=== PATIENT | female | born 1995 | race Caucasian/White ===

== ENCOUNTER 2022-02-27 09:12 | Outpatient (REF) | payer MEDICAID, SELFPAY | END 2022-02-27 09:13 | disposition home or self-care (01) | LOC: HO.HOSX 09:12 | PROVIDERS: Visit Provider Orthopaedic Surgery | DX: Z13.89 Encounter for screening for other disorder (principal) ==

== ENCOUNTER 2023-01-29 15:07 | Outpatient (REF) | payer MEDICAID, SELFPAY ==
--- NOTE | ~2023-01-29 | CT_ITS ---
EXAMINATION: CT ABDOMEN AND PELVIS WITHOUT CONTRAST CLINICAL INFORMATION: Unspecified abdominal pain. COMPARISON: None available. TECHNIQUE: Multidetector volumetric imaging was performed from the superior aspect of the liver through the pubic symphysis. Sagittal and coronal reformatted images were obtained on the technologist's workstation. Lack of intravenous and oral contrast limits visceral evaluation. This CT examination was performed using dose optimization techniques as appropriate, variously including the following: *Automated exposure control *Adjustment of mA and/or kV according to patient size (this includes techniques or standardized protocols for targeted exams where dose is matched to indication/reason for exam; i.e. extremities or head) *Use of iterative reconstruction technique DLP: 749 mGy-cm FINDINGS: LUNG BASES: Mild thin-walled cysts are seen at the lung bases, most pronounced in the left lower lobe without pleural effusions. No pericardial effusion. LIVER, GALLBLADDER, AND BILIARY TREE: Mild diffuse decreased hepatic attenuation without focal abnormality. No biliary abnormality. PANCREAS: Unremarkable. SPLEEN: 12.6 cm without focal abnormality. Small splenule. ADRENAL GLANDS: Unremarkable. KIDNEYS AND URETERS: The kidneys are normal in size, shape, and attenuation. No hydronephrosis, hydroureter, or calculi seen. No perinephric stranding. BLADDER: Unremarkable. GASTROINTESTINAL TRACT: The stomach, small bowel and appendix are unremarkable. The colon is unremarkable. ABDOMINAL WALL: No significant hernia is appreciated. LYMPH NODES: No lymphadenopathy. VASCULAR: Unremarkable. PELVIC VISCERA: Unremarkable. Trace free fluid in the cul-de-sac. OSSEOUS STRUCTURES: Mild degenerative disc disease in the visualized thoracic spine mild with increased kyphosis. CT/CT abdomen pelvis wo IV con IMPRESSION: 1. No acute intra-abdominal/pelvic abnormality to explain the patient's pain. 2. Mild hepatic steatosis without focal abnormality. 3. Trace free fluid in the cul-de-sac is likely physiologic. 4. Small thin-walled cysts in the lower lung lopez bilaterally are nonspecific in a patient of this age, but demonstrate benign features. Short-term radiographic follow-up as clinically indicated.
== END 2023-01-29 15:08 | disposition home or self-care (01) ==
LOC: HO.CT 15:07
PROVIDERS: Visit Provider Nurse Practitioner Family
DX: R10.9 Unspecified abdominal pain (principal)
CPT/HCPCS: 74176

== ENCOUNTER 2024-07-09 11:13 | Outpatient (REF) | payer MEDICAID, SELFPAY ==
[2024-07-09 13:08] LABS: MANUAL DIFF FLAG NO
[2024-07-09 13:18] LABS: Basophils Percent Auto 0.6 % (0-2); Eosinophils Absolute Auto 0.2 X10*3/uL (0.0-0.4); Hematocrit 37.6 % (37.0-47.0); Hemoglobin 11.6 g/dl (12.0-16.0); Imm Gran Abs Auto 0.03 X10*3/uL (0.00-0.03); Imm Gran Pct Auto 0.4 % (0.0-0.4); Lymphocytes Absolute Auto 2.1 X10*3/uL (1.2-4.9); Lymphocytes Percent Auto 29.8 % (20-40); Mean Corpuscular HGB Conc 30.9 g/dl (31.0-35.0); Mean Corpuscular Hemoglobin 25.7 pg (27.0-33.0); Mean Corpuscular Volume 83.2 fL (80.0-98.0); Mean Platelet Volume 12.1 fL (9.4-12.3); Monocytes Absolute Auto 0.3 X10*3/uL (0.1-1.2); Monocytes Percent Auto 4.6 % (2-11); Neutrophils Absolute Auto 4.3 x10*3/uL (2.0-8.3); Neutrophils Percent Auto 61.6 % (45-73); Platelet Count 289 X10*3/uL (160-400); Red Blood Count 4.52 X10*6/uL (4.20-5.50); Red Cell Distribution Width 14.9 % (11.0-16.0); White Blood Count 6.9 X10*3/uL (4.8-10.8)
[2024-07-09 13:23] LABS: Estimated Average Glucose 103 mg/dL; Hemoglobin A1c % 5.2 % (<6.0); Total Hemoglobin (HGBA1C) 3024.6198 umol/L
[2024-07-09 13:31] LABS: Rheumatoid Factor < 13.0 IU/mL (<15.0)
[2024-07-09 13:45] LABS: Alanine Aminotransferase 27 U/L (0-31); Albumin Level 4.1 g/dL (3.5-5.0); Alkaline Phosphatase 89 U/L (39-117); Anion Gap 8 (12-20); Aspartate Amino Transferase 26 U/L (5-31); Bilirubin Total 0.3 mg/dL (0.0-1.0); Blood Urea Nitrogen 9 mg/dL (9-16); C Reactive Protein 1.29 mg/dL (< or = 0.50); Calcium 8.6 mg/dL (8.4-10.2); Carbon Dioxide 27 mmol/L (22-29); Chloride 109 mmol/L (96-108); Cholesterol 120 mg/dL (<200); Estimated Glomerular Filt Rate > 60; Glucose Random 89 mg/dL (60-115); HDL Cholesterol 45 mg/dL (>40); LDL Cholesterol Calculated 62 mg/dL (<100); Sodium 140 mmol/L (135-145); Total Protein 8.7 g/dL (6.5-8.0); Triglycerides 67 mg/dL (<150)
[2024-07-09 13:47] LABS: TSH reflex Free T4 0.72 uIU/mL (0.32-4.0); Vitamin D 25-OH Total 16.2 ng/mL (>30)
[2024-07-09 13:57] LABS: Reflex LDLD? No
[2024-07-09 14:03] LABS: Erythrocyte Sedimentation Rate 28 MM/HR (0-20)
[2024-07-10 04:09] LABS: Syphilis Screen Nonreactive (Nonreactive)
[2024-07-10 04:22] LABS: HBsAGNum1 0.32 S/CO (0.00-0.99); HIV AB/AG Nonreactive (Nonreactive); HIV Num 1 0.06 S/CO (0.00-0.99); Hepatitis A Antibody IgG Nonreactive (Nonreactive); Hepatitis B Surface Antigen Negative (Negative); ~HepC Num1 0.08 S/CO (0.00-0.79); ~Hepatitis A Antibody IgG 0.68 S/CO (0.00-0.99); ~Hepatitis C Antibody Nonreactive (Nonreactive)
[2024-07-10 09:16] LABS: CT PCR NOT DETECTED (Not Detect.); NG PCR NOT DETECTED (Not Detect.)
[2024-07-16 08:33] LABS: Anti Nuclear Antibody Pattern Nuclear, Speckled; Anti Nuclear Antibody Screen POSITIVE (NEGATIVE); Anti Nuclear Antibody Titer 1:40 titer
[2024-07-16 08:49] LABS: Cyclic Citrullinated Peptide <16 UNITS
== END 2024-07-09 11:14 | disposition home or self-care (01) ==
LOC: HO.HHCL 11:13
PROVIDERS: Visit Provider Family Medicine
DX: M25.50 Pain in unspecified joint (principal); Z87.59 Personal history of other complications of pregnancy, childbirth and the puerperium; Z13.1 Encounter for screening for diabetes mellitus; Z13.220 Encounter for screening for lipoid disorders; Z11.3 Encounter for screening for infections with a predominantly sexual mode of transmission; E55.9 Vitamin D deficiency, unspecified; Z01.84 Encounter for antibody response examination
CPT/HCPCS: 80053; 80061; 82306; 83036; 84443; 85025; 85652; 86038; 86039; 86140; 86200; 86431; 86708; 86780; 86803; 87340; 87389; 87491; 87591

== ENCOUNTER 2025-01-11 10:20 | Outpatient (REF) | payer MEDICAID, SELFPAY ==
--- NOTE | ~2025-01-11 | XR_ITS ---
EXAMINATION: XR ANKLE 3 OR MORE VIEWS LEFT HISTORY: b/l ankle pain, tender, no injury COMPARISON: There are no prior studies available for comparison. FINDINGS: Three views of the left ankle are submitted. Osseous mineralization is normal. There is no fracture or dislocation. The joint spaces are preserved. There is a tiny calcaneal spur at the insertion of the Achilles tendon. The soft tissues are unremarkable. XR/XR ankle LT min 3V IMPRESSION: Tiny calcaneal spur at the insertion of the Achilles tendon. Otherwise unremarkable examination of the left ankle. Electronically signed by: Luisito Shah MD 01/11/2025 11:25 AM EDT
--- NOTE | ~2025-01-11 | XR_ITS ---
EXAMINATION: XR SHOULDER 2 OR MORE VIEWS LEFT HISTORY: shoulder pain, limited ROM COMPARISON: There are no prior studies available for comparison. FINDINGS: Three views of the left shoulder are submitted. Osseous mineralization is normal. There is no fracture or dislocation. The glenohumeral and acromioclavicular joint spaces are preserved. The soft tissues are unremarkable. XR/XR shoulder LT min 2V IMPRESSION: Unremarkable examination of the left shoulder. Electronically signed by: Luisito Shah MD 01/11/2025 11:19 AM EDT
--- NOTE | ~2025-01-11 | XR_ITS ---
EXAMINATION: XR KNEE, LEFT CLINICAL INFORMATION: b/l knee pain, medial and anterior COMPARISON: None available. TECHNIQUE: Three views of the left knee. FINDINGS: There is a joint effusion. Joint spaces are preserved. There are no abnormal calcifications in the soft tissues. XR/XR knee LT 3V IMPRESSION: Left knee joint effusion. Electronically signed by: Ankush Justin MD 01/11/2025 11:26 AM EDT
--- NOTE | ~2025-01-11 | XR_ITS ---
EXAMINATION: XR KNEE, RIGHT CLINICAL INFORMATION: b/l knee pain, medial and anterior COMPARISON: None available. TECHNIQUE: Three views of the right knee. FINDINGS: Joint effusion is evident. Joint spaces are preserved. There are no osteophytes. No other abnormalities are evident. XR/XR knee RT 3V IMPRESSION: Right knee joint effusion Electronically signed by: Ankush Justin MD 01/11/2025 11:27 AM EDT
--- NOTE | ~2025-01-11 | XR_ITS ---
EXAMINATION: XR ELBOW 3 VIEWS LEFT HISTORY: left elbow pain COMPARISON: There are no prior studies available for comparison. FINDINGS: Four views of the left elbow are submitted. Osseous mineralization is normal. There is no fracture or dislocation. The joint spaces are preserved. The soft tissues are unremarkable. There is no joint effusion. XR/XR elbow LT min 3V IMPRESSION: Unremarkable examination of the left elbow. Electronically signed by: Luisito Shah MD 01/11/2025 11:22 AM EDT
--- NOTE | ~2025-01-11 | XR_ITS ---
EXAMINATION: XR ANKLE 3 OR MORE VIEWS RIGHT HISTORY: b/l ankle pain, tender, no injury COMPARISON: There are no prior studies available for comparison. FINDINGS: Four views of the right ankle are submitted. Osseous mineralization is normal. There is no fracture or dislocation. The joint spaces are preserved. There is a small spur at the insertion of the Achilles tendon. The soft tissues are unremarkable. XR/XR ankle RT min 3V IMPRESSION: Small calcaneal spur at the insertion of the Achilles tendon. Otherwise unremarkable examination of the right ankle. Electronically signed by: Luisito Shah MD 01/11/2025 11:24 AM EDT
--- NOTE | ~2025-01-11 | XR_ITS ---
EXAMINATION: XR WRIST 3 OR MORE VIEWS LEFT HISTORY: left thumb pain, CMC joint and mid wrist COMPARISON: There are no prior studies available for comparison. FINDINGS: Four views of the left wrist are submitted. Osseous mineralization is normal. There is no fracture or dislocation. The joint spaces are preserved. The soft tissues are unremarkable. XR/XR wrist LT min 3V IMPRESSION: Unremarkable examination of the left wrist. Electronically signed by: Luisito Shah MD 01/11/2025 11:22 AM EDT
--- OUTSIDE RECORDS SUMMARY | 2025-01-11 11:26 | XMS_ITS | Encounter Summary ---
Author Organization [employer] Address [address] [place] [address] Care Team Providers Care Baker Head Name Role Phone Ambika Amezquita MD Primary Care Provider [phone] Reason for Visit * Reason Onset Date Comments Appointment Request 10/22/2024 Encounter Details Date Type Department Care Team ([facility] Contact Info) Description 10/22/2024 Telephone [facility] [address] [place] [phone] Ambika Amezquita MD [address] [place], [place] [phone] Appointment Request Social History Tobacco Use Types Packs/Day Years Used Date Smoking Tobacco: Former Cigarettes Passive Smoke Exposure: Never Smokeless Tobacco: Never Alcohol Use Standard Drinks/Week Comments Defer 0 (1 standard drink = 0.6 oz pur e alcohol) Depression Answer Date Recorded Patient Health Questionnaire-9 Score 0 09/10/2022 Housing Stability Answer Date Recorded What is your housing situation today? I have corinne santos 06/29/[address] you li ve. Do you have problems with any of the following? None of the above 06/29/2024 Food Insecurity Answer Date Recorded Within the past 12 months, y ou worried that your food would run out before you got money to buy more: Often true 06/29/2024 Within the past 12 months,th e food you bought just didn't last and you didn't have enough money to get more: Often true 11/2024 Transportation Answer Date Recorded In the past 12 months, has l ack of transportation kept you from medical appts, meetings, work or from getting things needed for daily living? No 06/29/2024 Utilities Answer Date Recorded In the past 12 months, has t he electric, gas, oil or water company threatened to shut off services in your home? No 06/29/2024 Depression Answer Date Recorded Patient Health Questionnaire-2 Score 0 09/10/2022 Internet Access Answer Date Recorded Internet Access Q1 Yes 06/29/2024 Internet Access Q2 Not on file 06/29/2024 Comments Unknown Sex and Gender Information Value Date Recorded Sex Assigned at Female 04/23/2022 10:33 AM EDT Legal Sex Female 10:33 AM EDT Gender Identity Female 04/23/2022 10:33 AM EDT Sexual Orientation Choose not to disclose 2021 10:33 AM EDT documented as of this encounter Miscellaneous Notes * Telephone Encounter - Isaias Stef - 10/22/2024 1:16 PM EDT TC from pt requesting to Schedule a follow up appt with PCP due to her seeing her Bones Doctor and him telling her that she should make a appt with her primary care. Contact pt at [phone] documented in this encounter Plan of Treatment Upcoming Encounters Date Type Department Care Team (Late st Contact Info) Description 03/08/2025 9:30 AM EDT Procedure Visit [facility] [address] [place] [address] Ambika Amezquita MD [address] [place] [address] 05/12/2025 10:00 AM EST Office Visit [facility] OPTOM[facility] [address] [place] [address] Daquan, Margie, OD [address] [place] [address] documented as of this encounter Visit Diagnoses Not on filedocumented in this encounter Additional Health Concerns Assessment Noted Time PHQ-9 Depression Total Score: 0 09/11/19 23 12:44 PM EDT documented as of this encounter Care Teams Baker Head Relationship Specialty Start Date End Date Ambika Amezquita MD [address] [place] [id number] PCP - General Family Medicine 03/27/18 documented as of this encounter
--- OUTSIDE RECORDS SUMMARY | 2025-01-11 11:26 | XMS_ITS | Clinical Summary ---
Author Organization [employer] [facility] ity Address [address] [place] [address] Care Team Providers Care Documentation Specialist Name Role Phone Unavailable Primary Care Provider Unavailabl e Social History Tobacco Use Types Packs/Day Years Used Date Smoking Tobacco: Never Assessed Comments Unknown Sex and Gender Information Value Date Recorded Sex Assigned at Not on file Legal Sex Female 11:41 PM EST Gender Identity Not on file Sexual Orientation Not on file Plan of Treatment Health Maintenance Due Date Last Done Comments DTaP,Tdap,and Td Vaccines (1 - Tdap) 2012 Hepatitis B Vaccines (1 of 3 - 19+ 3-dose series) 2012 Cervical Cancer Screening: P ap Smear 2014 COVID-19 Vaccine (1 - 2023-2 5 season) 2024 Depression Screening 06/24/2024 Influenza Vaccine (#1) 2025 HIB Vaccines Aged Out No longer eligi ble based on patient's age to complete this topic HPV Vaccines Aged Out No longer eligi ble based on patient's age to complete this topic Hepatitis A Vaccines Aged Out No long er eligible based on patient's age to complete this topic IPV Vaccines Aged Out No longer eligi ble based on patient's age to complete this topic MMR Vaccines Aged Out No longer eligi ble based on patient's age to complete this topic Meningococcal ACWY Vaccine Aged Out N o longer eligible based on patient's age to complete this topic Meningococcal B Vaccine Aged Out No l onger eligible based on patient's age to complete this topic Pneumococcal Vaccine: Pediat rics (0 to 5 Years) and At-Risk Patients (6 to 49 Years) Aged Out No longer eligible b ased on patient's age to complete this topic RSV Immunization Patients Un zackery 20 months Aged Out No longer eligible b ased on patient's age to complete this topic Varicella Vaccines Aged Out No longer eligible based on patient's age to complete this topic
== END 2025-01-11 10:21 | disposition home or self-care (01) ==
LOC: HO.HHCL 10:20
PROVIDERS: PCP Family Medicine; Visit Provider Family Medicine
DX: G89.29 Other chronic pain (principal); M25.571 Pain in right ankle and joints of right foot; M25.572 Pain in left ankle and joints of left foot; M79.645 Pain in left finger(s); M25.532 Pain in left wrist; M25.512 Pain in left shoulder; M25.522 Pain in left elbow; M25.561 Pain in right knee; M25.562 Pain in left knee
CPT/HCPCS: 73030; 73080; 73110; 73562; 73610

== ENCOUNTER → 2025-01-11 10:33 | Outpatient (BNV) | payer MEDICAID, SELFPAY | PROVIDERS: PCP Family Medicine; Visit Provider Radiology Diagnostic Radiology | DX: M25.512 Pain in left shoulder (principal); M25.462 Effusion, left knee; M25.461 Effusion, right knee; M77.31 Calcaneal spur, right foot; M77.32 Calcaneal spur, left foot; M25.522 Pain in left elbow; M25.572 Pain in left ankle and joints of left foot | CPT/HCPCS: 73030; 73080; 73110; 73562; 73610 ==

== ENCOUNTER 2025-03-08 13:37 | Outpatient (REF) | payer MEDICAID, SELFPAY ==
--- OUTSIDE RECORDS SUMMARY | 2025-03-08 09:30 | XMS_ITS | Encounter Summary ---
Author Organization [employer] Address [address] [place] [address] Care Team Providers Care Electric Arc Welder Name Role Phone Ambika Amezquita MD Primary Care Provider [phone] Encounter Details Date Type Department Care Team (Latest Contact Info) Description 03/08/2025 9:30 AM EDT Procedure Visit [facility] [address] [place], [place] [phone] Ambika Amezquita MD [address] [place] [address] Encounter for well woman exam with routine gynecological exam (Primary Dx) Social History Tobacco Use Types Packs/Day Years Used Date Smoking Tobacco: Former Cigarettes Passive Smoke Exposure: Never Smokeless Tobacco: Never Alcohol Use Standard Drinks/Week Comments Defer 0 (1 standard drink = 0.6 oz pur e alcohol) Depression Answer Date Recorded Patient Health Questionnaire-9 Score 5 03/08/2025 Patient Health Questionnaire-9 Score 5 03/08/2025 Last PHQ-9: Questionnaire Data Not on file 0 03/08/2025 Housing Stability Answer Date Recorded What is [...] Answer Date Recorded Patient Health Questionnaire-2 Score 1 03/08/2025 Internet Access Answer Date Recorded Internet Access Q1 Yes 06/29/2024 Internet Access Q2 Not on file 06/29/2024 Comments No Intention Date Recorded No desire to become (finding) 0 03/08/2025 Sex and Gender Information Value Date Recorded Sex Assigned at Female 04/23/2022 10:33 AM EDT Legal Sex Female 10:33 AM EDT Gender Identity Female 04/23/2022 10:33 AM EDT Sexual Orientation Choose not to disclose 2021 10:33 AM EDT documented as of this encounter Last Filed Vital Signs Vital Sign Reading Time Taken Comments Blood Pressure 122/90 03/08/2025 9:39 AM EDT Pulse 78 03/08/2025 9:39 AM EDT Temperature 36.1 C (96.9 F) 03/08/2025 9:39 AM EDT Respiratory Rate 16 03/08/2025 9:39 AM EDT Oxygen Saturation 98% 03/08/2025 9:39 AM EDT Inhaled Oxygen Concentration - - Weight 122 kg (268 lb 12.8 oz) 03/08/2025 9:39 A M EDT Height 162.6 cm (5' 4 ) 03/08/2025 9:39 AM EDT Body Mass Index 46.14 03/08/2025 9:39 AM EDT documented in this encounter Functional Status * Over the past 2 weeks, how often have you been bothered by any of the following problems? Question Answer Date of Assessment Author Patient Health Questionnaire -2 Score 1 03/08/2025 4:32 PM EDT Marisol Angel MA * Little interest or pleasure in doing things Answer Date of Assessment Author Several days 03/08/2025 4:32 PM EDT Ericka Angel MA * Feeling down, depressed, or hopeless Answer Date of Assessment Author Not at all 03/08/2025 4:32 PM EDT Ericka Angel MA * Trouble falling or staying asleep, or sleeping too much Answer Date of Assessment Author Several days 03/08/2025 4:32 PM EDT Ericka Angel MA * Feeling tired or having little energy Answer Date of Assessment Author Several days 03/08/2025 4:32 PM EDT Ericka Angel MA * Poor appetite or overeating Answer Date of Assessment Author Several days 03/08/2025 4:32 PM EDT Ericka Angel MA * Feeling bad about yourself - or that you are a failure or have let yourself or your family down Answer Date of Assessment Author Not at all 03/08/2025 4:32 PM EDT Ericka Angel MA * Trouble concentrating on things, such as reading the newspaper or watching television Answer Date of Assessment Author Several days 03/08/2025 4:32 PM EDT Ericka Angel MA * Moving or speaking so slowly that other people could have noticed? Or the opposite - being so fidgety or restless that you have been moving around a lot more than usual. Answer Date of Assessment Author Not at all 03/08/2025 4:32 PM EDT Ericka Angel MA * Thoughts that you would be better off or hurting yourself in some way Answer Date of Assessment Author Not at all 03/08/2025 4:32 PM EDT Ericka Angel MA * Patient Health Questionnaire-9 Score Answer Date of Assessment Author 5 03/08/2025 4:32 PM EDT Ericka Angel MA * How difficult have these problems made it for you to do your work, take care of things at home, or get along with other people? Answer Date of Assessment Author Not difficult at all 03/08/2025 4:32 PM EDT [facility] Ericka alston MA documented as of this encounter Plan of Treatment Upcoming Encounters Date Type Department Care Team (Late st Contact Info) Description 05/12/2025 10:00 AM EST Office Visit [facility] OPTOMETRY [address] [place] [address] Margie Butt, OD [address] [place] [address] Scheduled Orders Name Type Priority Associated Diagnoses Orde r Schedule Pap Smear Pathology and Cytology Routine Encounter for well woman exam with routine gynecological exam Ordered: 03/08/2025 STI testing add on (NG, CT, Trich) Pathology and Cytology Routine Encounter for well woman exam with routine gynecological exam Ordered: 03/08/2025 documented as of this encounter Visit Diagnoses Diagnosis Encounter for well woman exam with routine gynecological exam- Primary documented in this encounter Additional Health Concerns Assessment Noted Time PHQ-9 Depression Total Score: 5 03/08/20 25 4:32 PM EDT documented as of this encounter Care Teams Electric Arc Welder Relationship Specialty Start Date End Date Ambika Amezquita MD [address] [place] [id number] PCP - General Family Medicine 03/27/18 documented as of this encounter
--- OUTSIDE RECORDS SUMMARY | 2025-03-08 18:52 | XMS_ITS | Clinical Summary ---
Author Organization [employer] Address [address] [facility] [address] [place] [address] Care Team Providers Care Stratigraphy Teacher Name Role Phone Ambika Amezquita MD Primary Care Provider [phone] Allergies Active Allergy Reactions Criticality Noted Date Comments Aspirin 09/10/2022 Other reaction(s): itching all over body diffculty breathing Fish Allergy 09/10/2022 Medications * This document contains information received from the source organization and may not represent a complete record from that organization. diclofenac sodium 3 % gel Apply topically every 12 (twelve) hours. 2 Active chlorhexidine (Peridex) 0.12 % solution Swish 15 mL morning and night for 1 minute. Spit, do not swallow. Do not eat or drink for 30 minutes following use. 473 mL 4 Active acetaminophen (Tylenol) 500 MG tablet Take 2 tablets (1,000 mg) by mouth every 8 (eight) hours if needed for mild pain, moderate pain, headaches or fever. 90 tablet 1 5 Active meloxicam (Mobic) 7.5 MG tablet Take 1 tablet (7.5 mg) by mouth Once per day. 30 tablet 11 5 01/05/20 26 Active phentermine 30 MG capsule Take 1 capsule (30 mg) by mouth before breakfast. 90 capsule 1 5 Active ergocalciferol (Vitamin D2) 1.25 MG (15393 UT) capsule Take 1 capsule (1.25 mg) by mouth 1 (one) time per week. 8 capsule 5 Active cholecalciferol (Vitamin D-3) 25 MCG (1000 UT) tablet Take 1 tablet (25 mcg) by mouth Once per day. 90 tablet 3 Active Active Problems Problem Noted Date Diagnosed Date Effusion of both knee joints 01/16/2025 Chronic left shoulder pain 01/04/2025 Chronic elbow pain, left 01/04/2025 Elevated BP without diagnosis of hypertension Assessment & Plan (01/16/2025 5:47 AM EDT): -Goal BP < 130/80 per ACC/AHA guideline (Treatment threshold >=140/90) -Borderline Stage 1 HTN -Continue working on lifestyle modifications -Recommended self-monitoring BP. Chronic pain of both knees 07/09/2024 Assessment & Plan (01/16/2025 6:01 AM EDT): - encourage to stay physically active - continue judicious use of APAP / COX2 - Patient requests a prescription of a cane so that she can support herself and walk with a cane Assessment & Plan (07/09/2024 2:45 PM EST): - encourage to stay physically active - consider weight loss medication - continue judicious use of APAP / NSAID Chronic pain of left thumb 07/09/2024 Left wrist pain 07/09/2024 Assessment & Plan (01/16/2025 5:57 AM EDT): - probable deQuervain tenosynovitis - consider evaluation for carpal tunnel syndrome - judicious use of NSAIDs and APAP prn - activity modification - refer to ortho if patient is interested in steroid injection Assessment & Plan (07/09/2024 2:44 PM EST): - probable deQuervain tenosynovitis - consider evaluation for carpal tunnel syndrome - judicious use of NSAIDs and APAP prn - activity modification - refer to ortho if patient is interested in steroid injection Polyarthralgia 07/09/2024 Assessment & Plan (01/16/2025 5:56 AM EDT): - 07/09/24 GEETHA positive titer 1:320 - Referred to retail grocer. Pt was seen on 10/22/24. Unlikely to have autoimmune disorder. - Pt is still in severe pain - Referred to PT - For pain, Pt will be prescribed Meloxicam. Pt has allergy to Asprin, but is tolerating Ibuprofen - Consider chronic pain group - Consider orthopedist referral depending on x-ray results Assessment & Plan (07/09/2024 2:43 PM EST): - check autoimmune disease - encourage to stay physically active Chronic pain of both ankles 07/09/2024 Assessment & Plan (01/16/2025 6:00 AM EDT): - continue judicious use of APAP/Lim 2 - wear comfortable shoes - Patient requested cane prescription Assessment & Plan (07/09/2024 2:46 PM EST): - continue judicious use of APAP/NSAID - wear comfortable shoes - consider PT Anxiety and depression 07/09/2024 Assessment & Plan (07/09/2024 2:50 PM EST): - PHQ9 score - GAD7 score - refer to integrated behavioral health service for assessment and long-term care History of pre-eclampsia 07/08/2024 Headache 07/08/2024 Assessment & Plan (07/09/2024 2:42 PM EST): - Differential Dx: migraine; intracranial hypertension - 04/29/18 Brain MRI normal - try APAP 1000 mg q8h prn - improve sleep hygiene - optimize treatment for behavioral health - consider cutting down on THC - consider neurology referral Retained dental root 01/20/2024 Obesity 09/10/2022 Assessment & Plan (01/16/2025 5:59 AM EDT): - Continue working on lifestyle modifications. - Start phentermine 30 mg daily - Generic advice as below. Tailor for your unique body, character, and specific condition. Dietary Recommendations: Fruits, vegetables, whole grains, protein foods, and fat-free or low-fat dairy products are healthy choices. Eat different types of protein foods in your diet. This can include seafood, lean meats, poultry, beans, peas, lentils, nuts, seeds, soy products, and eggs. Limit foods and beverages higher in added sugars, saturated fat, and sodium. Exercise Recommendations: At least 150 minutes of moderate-intensity physical activity per week, or an equivalent combination of moderate- and vigorous-intensity activity Assessment & Plan (07/09/2024 2:46 PM EST): - lifestyle modifications - check lab - consider GLP1RA Vitamin D deficiency 01/20/2018 Resolved Problems Problem Noted Date Diagnosed Date Resolved Date Right-sided abdominal pain of unknown cause 09/10/2022 07/09/2024 Assessment & Plan (09/10/2022 12:02 PM EDT): Labs ordered, abdomen is non-surgical If negative will follow-up with imaging Acute vaginitis 08/13/2018 07/08/2024 Encounters Date Type Department Care Team Description 03/08/2025 9:30 AM EDT Procedure Visit [address] [address] Ambika Amezquita MD Encounter for well woman exam with routine gynecological exam (Primary Dx) 03/08/2025 Travel 03/05/[address] [address] Ambika Amezquita MD CHART PREP 01/18/2025 Telephone [facility] [address] [place], [place] [id number] Ambika Amezquita MD Durable Medical Equipment 01/16/2025 Orders Only [facility] [address] [place] [id number] Ambika Amezquita MD 01/14/2025 Results Follow-Up [address] [address] Ambika Amezquita MD XR Wrist 3+ Views Left 01/11/2025 Orders Only [facility] [address] [place] [id number] Ambika Amezquita MD 01/04/2025 11:00 AM EDT Office Visit [address] [address] Ambika Amezquita MD Chronic left shoulder pain (Primary Dx); Chronic elbow pain, left; Polyarthralgia; Chronic pain of both knees; Chronic pain of both ankles; Elevated BP without diagnosis of hypertension; Class 3 severe obesity due to excess calories with body mass index (BMI) of 45.0 to 49.9 in adult, unspecified whether serious comorbidity present; Vitamin D deficiency; Left wrist pain; Chronic pain of left thumb; Effusion of both knee joints 01/04/2025 Travel 01/01/2025 Telephone [facility] [address] [place], [place] [phone] Ambika Amezquita MD chart prep 12/23/2024 Telephone [facility] [address] [place] [address] Ambika Amezquita MD Nurse Triage from Last 3 Months Immunizations Immunization Administration Dates Next Due Hep B, adult 07/09/2024 Influenza injectable quadriv alent IIV4 with preservative 03/24/2018 Influenza injectable quadrivalent preservative f ree 08/06/2019 Influenza, seasonal, injectable, preservative fr ee 07/09/2024 Tdap 05/26/2020,01/20/2018 Social History Tobacco Use Types Packs/Day Years Used Date Smoking Tobacco: Former Cigarettes Passive Smoke Exposure: Never Smokeless Tobacco: Never Tobacco Cessation:Counseling Given: Not Answered Alcohol Use Standard Drinks/Week Comments Defer 0 [...] not to disclose 2021 10:33 AM EDT Last Filed Vital Signs Vital Sign Reading [...] Mass Index 46.14 03/08/2025 9:39 AM EDT Plan of Treatment Upcoming Encounters Date Type Department Care Team (Late st Contact Info) Description 05/12/2025 10:00 AM EST Office Visit [facility] [address] [place] [address] Daquan, Margie, OD [address] [place] [address] Health Maintenance Due Date Last Done Comments Dental Oral Exam 1993 Dental Prophylaxis 1993 Disability Screening 1993 HPV Vaccines (1 - 3-dose series) 2008 Pap Smear 2014 Cervical Cancer Screening 08/13/2023 HPV/Cotest 08/13/2023 08/13/2018 Hepatitis B Vaccines (2 of 3 - 19+ 3-dose series) 08/06/2024 07/09/2024 Dental X-Ray: Bitewings 01/07/2025 01/07/20, 11/01/2021 COVID-19 Vaccine (1 - 2023-2 5 season) 2025 Influenza Vaccine (#1) 2025 , 08/06/2019, 03/24/2018 SDOH Screening 06/29/2025 06/29/2024 Alcohol/Substance Use Screening 07/09/2025 07/09/2024 Depression Screening 03/08/2026 03/08/2025, 03/08/2025 Family Planning (PISQ) 03/08/2026 03/08/2025 Tobacco Screening 03/08/2026 03/08/2025 Dental X-Ray: Full Mouth 01/20/2027 01/20/2024 Lipid Panel 07/09/2029 07/09/2024 DTaP/Tdap/Td Vaccines (3 - T d or Tdap) 05/26/2030 05/26/2020, 01/20/2018 Zoster Vaccines (1 of 2) 2043 RSV Patients and Patients Aged 60 years or older (1 - 1-dose 75+ series) 2068 HIV Screening Completed 07/09/2024 Hepatitis C Screening Completed 07/09/2024 , 09/10/2022 HIB Vaccines Aged Out No longer eligi [...] patient's age to complete this topic Meningococcal Vaccine Aged Out No ashli angela eligible based on patient's age to complete this topic Pneumococcal Vaccine: Pediatrics (0 to 5 Years) and At-Risk Patients (6 to 49) Years Aged Out No longer eligible b ased on patient's age to complete this topic RSV under 20 months Aged Out No longe r eligible based on patient's age to complete this topic Rotavirus Vaccines Aged Out No longer eligible based on patient's age to complete this topic Procedures Procedure Name Priority Date/Time Associated Diagnosis Comments AMB REFERRAL TO PHYSICAL THERAPY Routine 01/29/2025 Chronic left shoulder pain Chronic elbow pain, left Polyarthralgia Chronic pain of both knees Chronic pain of both ankles XR ANKLE 3+ VIEWS LEFT Routine 01/11/2025 10:22 AM EDT Polyarthralgia Chronic pain of both ankles XR ANKLE 3+ VIEWS RIGHT Routine 01/11/2025 10:18 AM EDT Polyarthralgia Chronic pain of both ankles XR WRIST 3+ VIEWS LEFT Routine 01/11/2025 10:07 AM EDT Chronic pain of left thumb Left wrist pain XR ELBOW 3+ VIEWS LEFT Routine 01/11/2025 10:05 AM EDT Chronic elbow pain, left XR KNEE 3 VIEWS RIGHT Routine 01/11/2025 10:01 AM EDT Chronic pain of both knees XR KNEE 3 VIEWS LEFT Routine 01/11/2025 10:00 AM EDT Chronic pain of both knees XR SHOULDER 2+ VIEWS LEFT Routine 01/11/2025 9:55 AM EDT Chronic left shoulder pain HEPATITIS C AB W/REFL TO HCV RNA, QN, PCR Routine 07/09/2024 11:18 AM EST Routine screening for STI (sexually transmitted infection) HIV 1/2 ANTIGEN/ANTIBODY, FOURTH GENERATION W/RFL Routine 07/09/2024 11:18 AM EST Routine screening for STI (sexually transmitted infection) LIPID PANEL WITH REFLEX TO DIRECT LDL Routine 07/09/2024 11:18 AM EST Screening for lipid disorders PANORAMIC RADIOGRAPHIC IMAGE Routine 01/20/2024 10:00 AM EDT BITEWING - SINGLE RADIOGRAPHIC IMAGE Routine 01/07/2024 1:00 PM EDT ZZZ HISTORICAL HPV E6/E7 RFLX VIDA 16 18/45 Routine 08/13/2018 11:30 AM EST from Last 3 Months or Most Recently Relevant to Health Maintenance Results * Referral to Physical Therapy (01/29/2025) Ambika Amezquita MD OUTPATIENT REFERRAL ORDERABLES F inal Result * XR Ankle 3+ Views Left (01/11/2025 10:22 AM EDT) Anatomical Region Laterality Modality Lower Extremities, Ankle Left Radiogr aphic Imaging 01/11/2025 10:2 2 AM EDT Narrative 01/11/2025 11:27 AM EDT [address] [address] XRay Report Signed Patient: Latesha Kenney MR#: [id number] : 1995 Acct:[id number] Age/Sex: 29 / F ADM Date: 01/11/25 Loc: [facility] Attending Dr: Ambika Amezquita MD Ordering Physician: Ambika Amezquita MD Date of Service: 01/11/25 Procedure(s): XR ankle LT min 3V Accession Number(s): [id number] cc: Ambika Amezquita MD EXAMINATION: XR ANKLE 3 OR MORE VIEWS LEFT HISTORY: b/l ankle pain, tender, no injury COMPARISON: There are no prior studies available for comparison. FINDINGS: Three views of the left ankle are submitted. Osseous mineralization is normal. There is no fracture or dislocation. The joint spaces are preserved. There is a tiny calcaneal spur at the insertion of the Achilles tendon. The soft tissues are unremarkable. XR/XR ankle LT min 3V IMPRESSION: Tiny calcaneal spur at the insertion of the Achilles tendon. Otherwise unremarkable examination of the left ankle. Electronically signed by: Luisito Shah MD 01/11/2025 11:25 AM EDT Dictated By: Luisito Shah MD Signed By: <Electronically signed by Luisito Shah MD in OV> 01/11/25 1125 DD/ 1022 TD/TT: 01/11/25 1115 [employer] Attendant: Procedure Note Donotuseinterpreter, Image - 01/11/[address] [address] XRay Report Signed Patient: Latesha Kenney [facility]#: [id number] : 1995Acct:[id number] Age/Sex: 29 / FADM Date: 01/11/25 Loc: [facility] Attending Dr: Ambika Amezquita MD Ordering Physician: Ambika Amezquita MD Date of Service: 01/11/25 Procedure(s): XR ankle LT min 3V Accession Number(s): [id number] cc: Ambika Amezquita MD EXAMINATION: XR ANKLE 3 OR MORE VIEWS LEFT HISTORY: b/l ankle pain, tender, no injury COMPARISON: There are no prior studies available for comparison. FINDINGS: Three views of the left ankle are submitted. Osseous mineralization is normal. There is no fracture or dislocation. The joint spaces are preserved. There is a tiny calcaneal spur at the insertion of the Achilles tendon. The soft tissues are unremarkable. XR/XR ankle LT min 3V IMPRESSION: Tiny calcaneal spur at the insertion of the Achilles tendon. Otherwise unremarkable examination of the left ankle. Electronically signed by: Luisito Shah MD 01/11/2025 11:25 AM EDT Dictated By: Luisito Shah MD Signed By: <Electronically signed by Luisito Shah MD in OV> 01/11/25 1125 DD/ 1022 TD/TT: 01/11/25 1115 [employer] Attendant: us Ambika Amezquita MD IMG XR PROCEDURES Final Result * XR Ankle 3+ Views Right (01/11/2025 10:18 AM EDT) Anatomical Region Laterality Modality Lower Extremities, Ankle Right Radiogr aphic Imaging 01/11/2025 10:1 8 AM EDT Narrative 01/11/2025 11:27 AM EDT [address] [address] XRay Report Signed Patient: Latesha Kenney MR#: [id number] : 1995 Acct:[id number] Age/Sex: 29 / F ADM Date: 01/11/25 Loc: [facility] Attending Dr: Ambika Amezquita MD Ordering Physician: Ambika Amezquita MD Date of Service: 01/11/25 Procedure(s): XR ankle RT min 3V Accession Number(s): [id number] cc: Ambika Amezquita MD EXAMINATION: XR ANKLE 3 OR MORE VIEWS RIGHT HISTORY: b/l ankle pain, tender, no injury COMPARISON: There are no prior studies available for comparison. FINDINGS: Four views of the right ankle are submitted. Osseous mineralization is normal. There is no fracture or dislocation. The joint spaces are preserved. There is a small spur at the insertion of the Achilles tendon. The soft tissues are unremarkable. XR/XR ankle RT min 3V IMPRESSION: Small calcaneal spur at the insertion of the Achilles tendon. Otherwise unremarkable examination of the right ankle. Electronically signed by: Luisito Shah MD 01/11/2025 11:24 AM EDT Dictated By: Luisito Shah MD Signed By: <Electronically signed by Luisito Shah MD in OV> 01/11/25 1124 DD/ 1018 TD/TT: 01/11/25 1115 [employer] Attendant: Procedure Note Donotuseinterpreter, Image - 01/11/[address] [address] XRay Report Signed Patient: Latesha Kenney MMR#: [id number] : 1995Acct:[id number] Age/Sex: 29 / FADM Date: 01/11/25 Loc: [facility] Attending Dr: Ambika Amezquita MD Ordering Physician: Ambika Amezquita MD Date of Service: 01/11/25 Procedure(s): XR ankle RT min 3V Accession Number(s): [id number] cc: Ambika Amezquita MD EXAMINATION: XR ANKLE 3 OR MORE VIEWS RIGHT HISTORY: b/l ankle pain, tender, no injury COMPARISON: There are no prior studies available for comparison. FINDINGS: Four views of the right ankle are submitted. Osseous mineralization is normal. There is no fracture or dislocation. The joint spaces are preserved. There is a small spur at the insertion of the Achilles tendon. The soft tissues are unremarkable. XR/XR ankle RT min 3V IMPRESSION: Small calcaneal spur at the insertion of the Achilles tendon. Otherwise unremarkable examination of the right ankle. Electronically signed by: Luisito Shah MD 01/11/2025 11:24 AM EDT Dictated By: Luisito Shah MD Signed By: <Electronically signed by Luisito Shah MD in OV> 01/11/25 1124 DD/ 1018 TD/TT: 01/11/25 1115 [employer] Attendant: Ambika Amezquita MD IMG XR PROCEDURES Final Result * XR Wrist 3+ Views Left (01/11/2025 10:07 AM EDT) Anatomical Region Laterality Modality Upper Extremities, Wrist Left Radiogr aphic Imaging 01/11/2025 10:0 7 AM EDT Narrative 01/11/2025 11:24 AM EDT [place] [address] XRay Report Signed Patient: Latesha Kenney MR#: [id number] : 1995 Acct:[id number] Age/Sex: 29 / F ADM Date: 01/11/25 Loc: [facility] Attending Dr: Ambika Amezquita MD Ordering Physician: Ambika Amezquita MD Date of Service: 01/11/25 Procedure(s): XR wrist LT min 3V Accession Number(s): [id number] cc: Ambika Amezquita MD EXAMINATION: XR WRIST 3 OR MORE VIEWS LEFT HISTORY: left thumb pain, CMC joint and mid wrist COMPARISON: There are no prior studies available for comparison. FINDINGS: Four views of the left wrist are submitted. Osseous mineralization is normal. There is no fracture or dislocation. The joint spaces are preserved. The soft tissues are unremarkable. XR/XR wrist LT min 3V IMPRESSION: Unremarkable examination of the left wrist. Electronically signed by: Luisito Shah MD 01/11/2025 11:22 AM EDT RP Dictated By: Luisito Shah MD Signed By: <Electronically signed by Luisito Shah MD in OV> 01/11/25 1122 DD/ 1007 TD/TT: 01/11/25 1115 [employer] Attendant: Procedure Note Donotuseinterpreter, Image - 01/11/[address] [address] XRay Report Signed Patient: Latesha Kenney [facility]#: [id number] : 1995Acct:[id number] Age/Sex: M Date: 01/11/25 Loc: [facility] Attending Dr: Ambika Amezquita MD Ordering Physician: Ambika Amezquita MD Date of Service: 01/11/25 Procedure(s): XR wrist LT min 3V Accession Number(s): [id number] cc: Ambika Amezquita MD EXAMINATION: XR WRIST 3 OR MORE VIEWS LEFT HISTORY: left thumb pain, CMC joint and mid wrist COMPARISON: There are no prior studies available for comparison. FINDINGS: Four views of the left wrist are submitted. Osseous mineralization is normal. There is no fracture or dislocation. The joint spaces are preserved. The soft tissues are unremarkable. XR/XR wrist LT min 3V IMPRESSION: Unremarkable examination of the left wrist. Electronically signed by: Luisito Shah MD 01/11/2025 11:22 AM EDT RP Dictated By: Luisito Shah MD Signed By: <Electronically signed by Luisito Shah MD in OV> 01/11/25 1122 DD/ 1007 TD/TT: 01/11/25 1115 [employer] Attendant: us Ambika Amezquita MD IMG XR PROCEDURES Final Result * XR Elbow 3+ Views Left (01/11/2025 10:05 AM EDT) Anatomical Region Laterality Modality Upper Extremities, Elbow Left Radiogr aphic Imaging 01/11/2025 10:0 5 AM EDT Narrative 01/11/2025 11:25 AM EDT [address] [address] XRay Report Signed Patient: Latesha Kenney MR#: [id number] : 1995 Acct:[id number] Age/Sex: 29 / F ADM Date: 01/11/25 Loc: [facility] Attending Dr: Ambika Amezquita MD Ordering Physician: Ambika Amezquita MD Date of Service: 01/11/25 Procedure(s): XR elbow LT min 3V Accession Number(s): [id number] cc: Ambika Amezquita MD EXAMINATION: XR ELBOW 3 VIEWS LEFT HISTORY: left elbow pain COMPARISON: There are no prior studies available for comparison. FINDINGS: Four views of the left elbow are submitted. Osseous mineralization is normal. There is no fracture or dislocation. The joint spaces are preserved. The soft tissues are unremarkable. There is no joint effusion. XR/XR elbow LT min 3V IMPRESSION: Unremarkable examination of the left elbow. Electronically signed by: Luisito Shah MD 01/11/2025 11:22 AM EDT Dictated By: Luisito Shah MD Signed By: <Electronically signed by Luisito Shah MD in OV> 01/11/25 1122 DD/ 1005 TD/TT: 01/11/25 1115 [employer] Attendant: Procedure Note Donotuseinterpreter, Image - 01/11/[address] [address] XRay Report Signed Patient: Latesha Kenney MMR#: [id number] : 1995Acct:[id number] Age/Sex: 29 / FADM Date: 01/11/25 Loc: [facility] Attending Dr: Ambika Amezquita MD Ordering Physician: Ambika Amezquita MD Date of Service: 01/11/25 Procedure(s): XR elbow LT min 3V Accession Number(s): [id number] cc: Ambika Amezquita MD EXAMINATION: XR ELBOW 3 VIEWS LEFT HISTORY: left elbow pain COMPARISON: There are no prior studies available for comparison. FINDINGS: Four views of the left elbow are submitted. Osseous mineralization is normal. There is no fracture or dislocation. The joint spaces are preserved. The soft tissues are unremarkable. There is no joint effusion. XR/XR elbow LT min 3V IMPRESSION: Unremarkable examination of the left elbow. Electronically signed by: Luisito Shah MD 01/11/2025 11:22 AM EDT Dictated By: Luisito Shah MD Signed By: <Electronically signed by Luisito Shah MD in OV> 01/11/25 1122 DD/ 1005 TD/TT: 01/11/25 1115 [employer] Attendant: Ambika Amezquita MD IMG XR PROCEDURES Final Result * XR Knee 3 Views Right (01/11/2025 10:01 AM EDT) Anatomical Region Laterality Modality Lower Extremities, Knee Right Radiogra [facility] Imaging 01/11/2025 10:0 1 AM EDT Narrative 01/11/2025 11:29 AM EDT [address] [address] XRay Report Signed Patient: Latesha Kenney MR#: [id number] : 1995 Acct:[id number] Age/Sex: 29 / F ADM Date: 01/11/25 Loc: [facility] Attending Dr: Ambika Amezquita MD Ordering Physician: Ambika Amezquita MD Date of Service: 01/11/25 Procedure(s): XR knee RT 3V Accession Number(s): [id number] cc: Ambika Amezquita MD EXAMINATION: XR KNEE, RIGHT CLINICAL INFORMATION: b/l knee pain, medial and anterior COMPARISON: None available. TECHNIQUE: Three views of the right knee. FINDINGS: Joint effusion is evident. Joint spaces are preserved. There are no osteophytes. No other abnormalities are evident. XR/XR knee RT 3V IMPRESSION: Right knee joint effusion Electronically signed by: Ankush Justin MD 01/11/2025 11:27 AM EDT RP Dictated By: Ankush Justin MD Signed By: <Electronically signed by Ankush Justin MD in OV> 01/11/25 1127 DD/ 1001 TD/TT: 01/11/25 1115 [employer] Attendant: Procedure Note Donotuseinterpreter, Image - 01/11/[address] [address] XRay Report Signed Patient: Latesha Kenney [facility]#: [id number] : 1995Acct:[id number] Age/Sex: 29 FADM Date: 01/11/25 Loc: [facility] Attending Dr: Ambika Amezquita MD Ordering Physician: Ambiak Amezquita MD Date of Service: 01/11/25 Procedure(s): XR knee RT 3V Accession Number(s): [id number] cc: Ambika Amezquita MD EXAMINATION: XR KNEE, RIGHT CLINICAL INFORMATION: b/l knee pain, medial and anterior COMPARISON: None available. TECHNIQUE: Three views of the right knee. FINDINGS: Joint effusion is evident. Joint spaces are preserved. There are no osteophytes. No other abnormalities are evident. XR/XR knee RT 3V IMPRESSION: Right knee joint effusion Electronically signed by: Ankush Justin MD 01/11/2025 11:27 AM EDT RP Dictated By: Ankush Justin MD Signed By: <Electronically signed by Ankush Justin MD in OV> 01/11/25 1127 DD/ 1001 TD/TT: 01/11/25 1115 [employer] Attendant: Ambika Amezquita MD IMG XR PROCEDURES Final Result * XR Knee 3 Views Left (01/11/2025 10:00 AM EDT) Anatomical Region Laterality Modality Lower Extremities, Knee Left Radiogra phic Imaging 01/11/2025 10:0 0 AM EDT Narrative 01/11/2025 11:29 AM EDT [address] [address] XRay Report Signed Patient: Latesha Kenney MR#: [id number] : 1995 Acct:[id number] Age/Sex: 29 / F ADM Date: 01/11/25 Loc: [facility] Attending Dr: Ambika Amezquita MD Ordering Physician: Ambika Amezquita MD Date of Service: 01/11/25 Procedure(s): XR knee LT 3V Accession Number(s): [id number] cc: Ambika Amezquita MD EXAMINATION: XR KNEE, LEFT CLINICAL INFORMATION: b/l knee pain, medial and anterior COMPARISON: None available. TECHNIQUE: Three views of the left knee. FINDINGS: There is a joint effusion. Joint spaces are preserved. There are no abnormal calcifications in the soft tissues. XR/XR knee LT 3V IMPRESSION: Left knee joint effusion. Electronically signed by: Ankush Justin MD 01/11/2025 11:26 AM EDT Dictated By: Ankush Justin MD Signed By: <Electronically signed by Ankush Justin MD in OV> 01/11/25 1126 DD/ 1000 TD/TT: 01/11/25 1115 Gallery Or Museum Attendant: Procedure Note Donotuseinterpreter, Image - 01/11/[address] [address] XRay Report Signed Patient: Latesha Kenney MMR#: [id number] : 1995Acct:[id number] Age/Sex: 29 / FADM Date: 01/11/25 [facility] Dr: Ambika Amezquita MD Ordering Physician: Ambika Amezquita MD Date of Service: 01/11/25 Procedure(s): XR knee LT 3V Accession Number(s): [id number] cc: Ambika Amezquita MD EXAMINATION: XR KNEE, LEFT CLINICAL INFORMATION: b/l knee pain, medial and anterior COMPARISON: None available. TECHNIQUE: Three views of the left knee. FINDINGS: There is a joint effusion. Joint spaces are preserved. There are no abnormal calcifications in the soft tissues. XR/XR knee LT 3V IMPRESSION: Left knee joint effusion. Electronically signed by: Ankush Justin MD 01/11/2025 11:26 AM EDT Dictated By: Ankush Justin MD Signed By: <Electronically signed by Ankush Justin MD in OV> 01/11/25 1126 DD/ 1000 TD/TT: 01/11/25 1115 Gallery Or Museum Attendant: Ambika Amezquita MD IMG XR PROCEDURES Final Result * XR Shoulder 2+ Views Left (01/11/2025 9:55 AM EDT) Anatomical Region Laterality Modality Upper Extremities, Shoulder Left Radi ographic Imaging 01/11/2025 9:55 AM EDT Narrative 01/11/2025 11:22 AM EDT [place] [address] XRay Report Signed Patient: Latesha Kenney MR#: [id number] : 1995 Acct:[id number] Age/Sex: 29 / F ADM Date: 01/11/25 [facility]: [facility] Attending Dr: Ambika Amezquita MD Ordering Physician: Ambika Amezquita MD Date of Service: 01/11/25 Procedure(s): XR shoulder LT min 2V Accession Number(s): [id number] cc: Ambika Amezquita MD EXAMINATION: XR SHOULDER 2 OR MORE VIEWS LEFT HISTORY: shoulder pain, limited ROM COMPARISON: There are no prior studies available for comparison. FINDINGS: Three views of the left shoulder are submitted. Osseous mineralization is normal. There is no fracture or dislocation. The glenohumeral and acromioclavicular joint spaces are preserved. The soft tissues are unremarkable. XR/XR shoulder LT min 2V IMPRESSION: Unremarkable examination of the left shoulder. Electronically signed by: Luisito Shah MD 01/11/2025 11:19 AM EDT RP Dictated By: Luisito Shah MD Signed By: <Electronically signed by Luisito Shah MD in OV> 01/11/25 1119 DD/ TD/TT: 01/11/251114 Gallery Or Museum Attendant: Procedure Note Donotuseinterpreter, Image - 01/11/[address] [address] XRay Report Signed Patient: Latesha Kenney [facility]#: [id number] : 1995Acct:[id number] Age/Sex: M Date: 01/11/25 Loc: [facility] Attending Dr: Ambika Amezquita MD Ordering Physician: Ambika Amezquita MD Date of Service: 01/11/25 Procedure(s): XR shoulder LT min 2V Accession Number(s): [id number] cc: Ambika Amezquita MD EXAMINATION: XR SHOULDER 2 OR MORE VIEWS LEFT HISTORY: shoulder pain, limited ROM COMPARISON: There are no prior studies available for comparison. FINDINGS: Three views of the left shoulder are submitted. Osseous mineralization is normal. There is no fracture or dislocation. The glenohumeral and acromioclavicular joint spaces are preserved. The soft tissues are unremarkable. XR/XR shoulder LT min 2V IMPRESSION: Unremarkable examination of the left shoulder. Electronically signed by: Luisito Shah MD 01/11/2025 11:19 AM EDT RP Dictated By: Luisito Shah MD Signed By: <Electronically signed by Luisito Shah MD in OV> 01/11/25 111 DD/ TD/TT: 01/11/251114 Gallery Or Museum Attendant: Ambika Amezquita MD IMG XR PROCEDURES Final Result * Lipid Panel with Reflex to Direct LDL (07/09/2024 11:18 AM EST) Triglycerides 67 <150 mg/dL [facility] Comment:Desirable Triglyceri de: less than 150 mg/dLBorderline High Triglyceride 150-199 mg/dLHigh Triglyceride: 200-499 mg/dLVery High Triglyceride: greater than or equal to 5OO mg/dL Cholesterol 120 <200 mg/dL [facility] Comment:Desirable Cholestero l: less than 200 mg/dLBorderline High Cholesterol: 200-239 mg/dLHigh Cholesterol: greater than 239 mg/dL LDL Cholesterol Calculated 62 <100 mg/dL [facility] Comment:Desirable LDL: less than 100 mg/dLNear Optimal/Above Optimal LDL: 110- 129 mg/dLBorderline High LDL: 130-159 mg/dLHigh LDL: 160-189 mg/dLVery High LDL: greater than or equal to 190 mg/dL HDL Cholesterol 45 >40 mg/dL [facility] Comment:Desirable HDL: great er than 40 mg/dL Note: This HDL assay may give artificially low results in patients with liver disease. Blood 07/09/2024 11:1 8 AM EST 07/09/2024 1:03 PM EST us Ambika Amezquita MD LAB BLOOD ORDERABLES Final Resul t Performing Organization Address [facility] Phone Number [facility] [address] [place] [phone] * Hepatitis C Antibody with Reflex to HCV, RNA, Quantitative, Real-Time PCR (07/09/2024 11:18 AM EST) Hepatitis C Antibody Nonreactive Nonreactive [facility] Comment:Antibodies to HCV no t detected; does not exclude early acuteHCV infection. Blood Venous blood specimen / Unknown 07/09/2024 11:18 AM EST 07/09/2024 1:03 PM EST Ambika Amezquita MD LAB BLOOD ORDERABLES Final Resul t Performing Organization Address City/[facility] Co de Phone Number [facility] [address] [place] [phone] * HIV-1/2 Antigen and Antibodies, Fourth Generation, with Reflexes (07/09/2024 11:18 AM EST) Pathologist [facility] HIV AB/AG Nonreactive Nonreactive [facility] Comment:HIV-1 p24 Ag and/or HIV-1/HIV-2 Ab not detected.A test result that is nonreactive does not exclude thepossibility of exposure to or infection with HIV-1 and/orHIV-2. Nonreactive results in this assay for individualswith prior exposure to HIV-1 and/or HIV-2 may be due toantigen and antibody levels that are below the limit ofdetection of this assay.The [facility] HIV Ag/Ab Combo assay result andsupplemental assay results should be interpreted inconjunction with the patient's clinical presentation,history and other laboratory results. If the results areinconsistent with clinical evidence, additional testing issuggested to confirm the result. Blood Venous blood specimen / Unknown 07/09/2024 11:18 AM EST 07/09/2024 1:03 PM EST us Ambika Amezquita MD LAB BLOOD ORDERABLES Final Resul t [facility] [address] [place] [phone] [phone] * HPV E6/E7 RFLX VIDA 16 18/45 (08/13/2018 11:30 AM EST) Pathologist [facility] HPV 18/45 RNA Test not performed [facility] HPV mRNA E6/E7 Not Detected NOT DETECTED [facility] Comment: This test was performed using the APTIMA(R) HPV Assay ([employer] This assay detects E6/E7 viral messenger RNA (mRNA) from 14 high-risk HPV types (16,18,31,33,35,39,45,51, 52,56,58,59,66,68). For additional information please refer to: http://education.[employer]/faq/PTW651w6 (This link is being provided for informational/ educational purposes only.) The analytical performance characteristics of this assay have been determined by [employer] [place], [place]. The modifications have not been cleared or approved by the FDA. This assay has been validated pursuant to the CLIA regulations and is used for clinical purposes. Please note: Effective 03/05/2016, HPV testing will be performed using [employer] APTIMA test which targets mRNA. Detecting mRNA instead of DNA, as in older methods, offers significant improvements in specificity. ADDITIONAL TESTING Not indicated () [facility] Comment: Test Performed by [employer], [employer] [place], [address] [place], [place] Bijan Gray M.D., Ph.D., Director of Laboratories , [place] [id number] HPV 16 RNA Test not performed [facility] 08/13/2018 11:3 0 AM EST Geetha Cruz MD HISTORICAL/NON ORDERABLE LABS Final Result [facility] [address] from Last 3 Months or Most Recently Relevant to Health Maintenance Insurance [facility] C3 DENTAL-[facility] MEDICAID STAND ADULT Care Teams Stratigraphy Teacher Relationship Specialty Start Date End Date Ambika Amezquita MD [address] [place] [phone] PCP - General Family Medicine 03/27/18
--- OUTSIDE RECORDS SUMMARY | 2025-03-08 18:52 | XMS_ITS | Encounter Summary ---
Author Organization [id number] Address [address] [facility] 7t [place] [address] Care Team Providers Care Economic Research Analyst Name Role Phone Ambika Amezquita MD Primary Care Provider [phone] Encounter Details Date Type Department Care Team ([facility] st Contact Info) Description 01/14/2025 Results Follow-Up [facility] MEDICINE [address] [place], [place] [phone] Ambika Amezquita MD [address] [place] [address] XR Wrist 3+ Views Left Social History Tobacco Use Types Packs/Day Years [...] Q2 Not on file 06/29/2024 Comments No Sex and Gender Information Value Date Recorded Sex Assigned at Female 04/23/2022 10:33 AM EDT Legal Sex Female 10:33 AM EDT Gender Identity Female 04/23/2022 10:33 AM EDT Sexual Orientation Choose not to disclose 2021 10:33 AM EDT documented as of this encounter Plan of Treatment Upcoming Encounters Date Type Department Care Team (Late st Contact Info) Description 05/12/2025 10:00 AM EST Office Visit [facility] OPTOMETRY [address] [place] [address] Daquan, Margie, OD [address] [place] [address] documented as of this encounter Visit Diagnoses Not on filedocumented in this encounter Additional Health Concerns Assessment Noted Time PHQ-9 Depression Total Score: 0 09/11/19 23 12:44 PM EDT documented as of this encounter Care Teams Economic Research Analyst Relationship Specialty Start Date End Date Ambika Amezquita MD [address] [place], [place] [phone] PCP - General Family Medicine 03/27/18 documented as of this encounter
--- OUTSIDE RECORDS SUMMARY | 2025-03-08 18:52 | XMS_ITS | Encounter Summary ---
Author Organization [employer] Address [address] [facility] 7t [place] [address] Care Team Providers Care Mid Level Java Developer Name Role Phone Ambika Amezquita MD Primary Care Provider [phone] Reason for Visit * Reason Onset Date Comments Appointment Request 10/22/2024 Encounter Details Date Type Department Care Team ([facility] Contact Info) Description 10/22/2024 Telephone [facility] MEDICINE [address] [place] [phone] Ambika Amezquita MD [address] [place], [place] [phone] Appointment Request Social History Tobacco Use Types [...] with her primary care. Contact pt at [phone] documented in this encounter Plan of Treatment Upcoming Encounters Date Type Department Care Team (Late st Contact Info) Description 05/12/2025 10:00 AM EST Office Visit [facility] OPTOMETRY [address] [place] [address] Daquan, Margie, OD [address] [place] [address] documented as of this encounter Visit Diagnoses Not on filedocumented in this encounter Additional Health Concerns Assessment Noted Time PHQ-9 Depression Total Score: 0 09/11/19 23 12:44 PM EDT documented as of this encounter Care Teams Mid Level Java Developer Relationship Specialty Start Date End Date Ambika Amezquita MD [address] [place] [address] PCP - General Family Medicine 03/27/18 documented as of this encounter
--- OUTSIDE RECORDS SUMMARY | 2025-03-08 18:52 | XMS_ITS | Encounter Summary ---
Author Organization [employer] Address [address] [facility] 7t [place] [address] Care Team Providers Care Easement Man Name Role Phone Ambika Amezquita MD Primary Care Provider [phone] Reason for Visit * Reason Onset Date Comments CHART PREP 03/05/2025 Encounter Details Date Type Department Care Team ([facility] Contact Info) Description 03/05/2025 Telephone [facility] MEDICINE [address] [place] [phone] Ambika Amezquita MD [address] [place], [place] [phone] CHART PREP Social History Tobacco Use Types Packs/Day Years [...] encounter Miscellaneous Notes * Telephone Encounter - Sandoval Connelly [place] - 03/05/2025 2:29 PM EDT Chart Prep Labs: not applicable Images: not applicable Referrals: not applicable Vaccines due: Covid, Flu, Hep B, and HPV Screenings: LMP Overdue care gaps: PHQ-9, DEE-7, and Disability screen documented in this encounter Plan of Treatment Upcoming Encounters Date Type Department Care Team (Late st Contact Info) Description 05/12/2025 10:00 AM EST Office Visit [facility] OPTOMETRY [address] [place] [address] Daquan, Margie, OD [address] [place] [address] documented as of this encounter Visit Diagnoses Not on filedocumented in this encounter Additional Health Concerns Assessment Noted Time PHQ-9 Depression Total Score: 0 09/11/19 23 12:44 PM EDT documented as of this encounter Care Teams Easement Man Relationship Specialty Start Date End Date Ambika Amezquita MD [address] [place] [address] PCP - General Family Medicine 03/27/18 documented as of this encounter
--- OUTSIDE RECORDS SUMMARY | 2025-03-08 18:52 | XMS_ITS | Encounter Summary ---
Author Organization [employer] Address [address] [facility] [address] [place] [address] Care Team Providers Care High School Coach Name Role Phone Ambika Amezquita MD Primary Care Provider [phone] Reason for Referral * Consultation (Routine) - Closed Specialty Diagnoses / Procedures Referred By Christopher mendosa Referred To Contact Rheumatology Diagnoses Polyarthralgia Positive GEETHA (antinuclear antibody) Ambika Amezquita MD [address] [place] [address] Phone: tel: fax: [facility] [address] [place] [address] Phone: tel: fax: Referral ID Status Reason Start Date Expiration Date V isits Requested Visits Authorized [id number] Closed Specialty Services Required 07/20/2024 07/20/2025 6 6 Encounter Details Date Type Department Care Team (Late st Contact Info) Description 07/16/2024 Orders Only [facility] [address] [place] [phone] Ambika Amezquita MD [address] [place] [phone] Polyarthralgia (Primary Dx); Positive GEETHA (antinuclear antibody) Social History Tobacco Use Types Packs/Day Years [...] Description 05/12/2025 10:00 AM EST Office Visit [facility] OPTOMETRY [address] [place] [address] Daquan, Margie, OD [address] [place] [address] Scheduled Referrals Name Type Priority Associated Diagnoses Order Schedule Referral to Rheumatology Outpatient Referral Routine Polyarthralgia Positive GEETHA (antinuclear antibody) Expected: 07/16/2024 (Approximate), Expires: 07/16/2025 documented as of this encounter Visit Diagnoses Diagnosis Polyarthralgia- Primary Pain in joint, multiple sites Positive GEETHA (antinuclear antibody) Other and unspecified nonspecific immunological findings documented in this encounter Additional Health Concerns Assessment Noted Time PHQ-9 Depression Total Score: 0 09/11/19 23 12:44 PM EDT documented as of this encounter Care Teams High School Coach Relationship Specialty Start Date End Date Ambika Amezquita MD [address] [place] [address] PCP - General Family Medicine 03/27/18 documented as of this encounter
--- OUTSIDE RECORDS SUMMARY | 2025-03-08 18:52 | XMS_ITS | Encounter Summary ---
Author Organization [employer] Address [address] [facility] 7t [place] [address] Care Team Providers Care Fish Filleter Name Role Phone Ambika Amezquita MD Primary Care Provider [phone] Encounter Details Date Type Department Care Team (Late Contact Info) Description 09/12/2022 Orders Only [facility] MEDICINE [address] [place], [place] [phone] Daysi Mathews MD [address] [place] [address] Other iron deficiency anemia (Primary Dx) Social History Tobacco Use Types Packs/Day Years Used Date Smoking Tobacco: Never Passive Smoke Exposure: Never Smokeless Tobacco: Never Depression Answer Date Recorded Patient Health Questionnaire-9 Score 0 09/10/2022 Depression Answer Date Recorded Patient Health Questionnaire-2 Score 0 09/10/2022 Comments Unknown Sex and Gender Information Value Date Recorded Sex Assigned at Female 04/23/2022 10:33 AM EDT Legal Sex Female 10:33 AM EDT Gender Identity Female 04/23/2022 10:33 AM EDT Sexual Orientation Choose not to disclose 2021 10:33 AM EDT COVID-19 Exposure Response Date Recorded In the last 10 days, have yo u been in contact with someone who was confirmed or suspected to have Coronavirus/COVID-19? No / Unsure 09/10/2022 11:28 AM EDT documented as of this encounter Plan of Treatment Upcoming Encounters Date Type Department Care Team (Late st Contact Info) Description 05/12/2025 10:00 AM EST Office Visit [facility] OPTOMETRY [address] [place] [address] Margie Butt, OD [address] [place] [address] documented as of this encounter Visit Diagnoses Diagnosis Other iron deficiency anemia- Primary documented in this encounter Additional Health Concerns Assessment Noted Time PHQ-9 Depression Total Score: 0 09/11/19 23 12:44 PM EDT documented as of this encounter Care Teams Fish Filleter Relationship Specialty Start Date End Date Ambika Amezquita MD [address] [place] [address] PCP - General Family Medicine 03/27/18 documented as of this encounter
--- OUTSIDE RECORDS SUMMARY | 2025-03-08 18:52 | XMS_ITS | Clinical Summary ---
Author Organization [employer] [facility] ity Address [address] [place] [address] Care Team Providers Care Cable Mock Up Assembler Name Role Phone Unavailable Primary Care Provider [...] Cervical Cancer Screening: P ap Smear 2014 Depression Screening 06/24/2024 COVID-19 Vaccine (1 - 2023-2 5 season) 2025 Influenza Vaccine (#1) 2025 HIB Vaccines Aged [...]
--- OUTSIDE RECORDS SUMMARY | 2025-03-08 18:52 | XMS_ITS | Encounter Summary ---
Author Organization [employer] Address [address] [facility] 7t [place] [address] Care Team Providers Care Radioactive Waste Disposal Dispatcher Name Role Phone Ambika Amezquita MD Primary Care Provider [phone] Encounter Details Date Type Department Care Team (Latest Contact Info) Description 03/08/2025 Travel Social History Tobacco Use Types Packs/Day Years [...] AM EDT documented as of this encounter Functional Status * Over the past 2 weeks, how often have you been bothered by any of the following problems? Question Answer Date of Assessment Author Patient Health Questionnaire -2 Score 1 03/08/2025 4:32 PM Marisol Jeffrey MA * Little interest or pleasure in doing things Answer Date of Assessment Author Several days 03/08/2025 4:32 PM Ericka Jeffrey MA * Feeling down, depressed, or hopeless Answer Date of Assessment Author Not at all 03/08/2025 4:32 PM Ericka Jeffrey MA * Trouble falling or staying asleep, or sleeping too much Answer Date of Assessment Author Several days 03/08/2025 4:32 PM Ericka Jeffrey MA * Feeling tired or having little energy Answer Date of Assessment Author Several days 03/08/2025 4:32 PM Ericka Jeffrey MA * Poor appetite or overeating Answer Date of Assessment Author Several days 03/08/2025 4:32 PM Ericka Jeffrey MA * Feeling bad about yourself - or that you are a failure or have let yourself or your family down Answer Date of Assessment Author Not at all 03/08/2025 4:32 PM Ericka Jeffrey MA * Trouble concentrating on things, such as reading the newspaper or watching television Answer Date of Assessment Author Several days 03/08/2025 4:32 PM Ericka Jeffrey MA * Moving or speaking so slowly that other people could have noticed? Or the opposite - being so fidgety or restless that you have been moving around a lot more than usual. Answer Date of Assessment Author Not at all 03/08/2025 4:32 PM Ericka Jeffrey MA * Thoughts that you would be [...] difficult at all 03/08/2025 4:32 PM EDT Ericka Atkinson MA documented as of this encounter Plan of Treatment Upcoming Encounters Date Type Department Care Team (Late st Contact Info) Description 05/12/2025 10:00 AM EST Office Visit [facility] OPTOMETRY [address] [place] [address] Daquan, Margie, OD [address] [place] [address] documented as of this encounter Visit Diagnoses Not on filedocumented in this encounter Additional Health Concerns Assessment Noted Time PHQ-9 Depression Total Score: 5 03/08/20 25 4:32 PM EDT documented as of this encounter Care Teams Radioactive Waste Disposal Dispatcher Relationship Specialty Start Date End Date Ambika Amezquita MD [address] [place] [address] PCP - General Family Medicine 03/27/18 documented as of this encounter
== END 2025-03-08 13:38 | disposition home or self-care (01) ==
LOC: HO.HHCLNP 13:37
PROVIDERS: Visit Provider Family Medicine
DX: Z13.89 Encounter for screening for other disorder (principal)